=== PATIENT | female | born 1985 | race Two or more races ===

== ENCOUNTER 2018-01-05 01:43 | Emergency (ER) | payer MEDICAID, OTHER ==
[~2018-01-05] VITALS: Ht 162.6 cm; Wt 61.0 kg
[2018-01-05] MEDS ORDERED: ONDANSETRON HCL 4MG TABLET PO ONE (04:00)
[2018-01-05] MEDS ORDERED: FLUTICASONE PROPIONATE 50MCG/SPRAY BOTTLE BOTHNSTRLS STA (04:00)
[2018-01-05] MEDS ORDERED: KETOROLAC 60MG/2ML VIAL IM ONE (04:00)
[2018-01-05] MEDS ORDERED: LORATADINE 10MG TABLET PO STA (04:00)
[2018-01-05 05:44] VITALS: BP 116/85
== END 2018-01-05 05:44 | disposition home or self-care (01) ==
LOC: ER 01:43
DX: J01.90 Acute sinusitis, unspecified (principal)
CPT/HCPCS: 96372; 99284; J1885; Q0162

== ENCOUNTER 2018-05-22 10:32 | Emergency (ER) | payer OTHER ==
[~2018-05-22] VITALS: Ht 162.6 cm; Wt 68.0 kg
[2018-05-22] MEDS ORDERED: ONDANSETRON 4MG ODT PO ONE (12:00)
[2018-05-22] MEDS ORDERED: KETOROLAC 60MG/2ML VIAL IM ONE (12:00)
[2018-05-22 12:05] VITALS: BP 131/68
== END 2018-05-22 14:53 | disposition home or self-care (01) ==
LOC: ER 10:32
DX: J06.9 Acute upper respiratory infection, unspecified (principal); R51 Headache; J32.9 Chronic sinusitis, unspecified; R11.0 Nausea; Z90.49 Acquired absence of other specified parts of digestive tract
CPT/HCPCS: 71046; 81025; 96372; 99283; J1885; Q0162

== ENCOUNTER 2018-06-07 15:04 | Emergency (ER) | payer OTHER ==
[~2018-06-07] VITALS: Ht 162.6 cm; Wt 66.0 kg
[2018-06-07] MEDS ORDERED: ACET-2708 PO (15:41)
[2018-06-07] MEDS ORDERED: IBUP-2029 MT (15:41)
[2018-06-07] MEDS ORDERED: ACET-2178 MT (15:41)
[2018-06-07 20:00] VITALS: BP 119/62
== END 2018-06-07 19:59 | disposition home or self-care (01) ==
LOC: ER 15:04
DX: J02.8 Acute pharyngitis due to other specified organisms (principal); R21 Rash and other nonspecific skin eruption; Z90.49 Acquired absence of other specified parts of digestive tract
CPT/HCPCS: 99283

== ENCOUNTER 2018-08-13 13:10 | Emergency (ER) | payer OTHER ==
[~2018-08-13] VITALS: Ht 162.6 cm; Wt 67.0 kg
[~2018-08-13 13:10] MED LIST: ACET-2178 MT; ACET-2708 PO; IBUP-2029 MT
[2018-08-13 13:17] VITALS: BP 124/77
== END 2018-08-13 15:46 | disposition home or self-care (01) ==
LOC: ER 13:42
DX: J01.91 Acute recurrent sinusitis, unspecified (principal)
CPT/HCPCS: 87070; 87430; 99283